=== PATIENT | male | born 1950 | race Hispanic/Latino ===

== ENCOUNTER 2023-02-10 21:05 | Emergency (ER) | payer OTHER ==
[~2023-02-10] VITALS: Ht 162.6 cm; Wt 82.6 kg
[2023-02-10 21:09] VITALS: BP 106/82
[2023-02-11] MEDS ORDERED: D-ME118S47 PO (00:04)
== END 2023-02-11 01:13 | disposition home or self-care (01) ==
LOC: EDH 21:05 → EEVIPCON 21:05 → EDH 02-11 01:13
DX: R05.9 Cough, unspecified (principal)
CPT/HCPCS: 71045

== ENCOUNTER 2025-07-02 11:31 | Emergency (ER) | payer MEDICARE, MEDICAID ==
[~2025-07-02] VITALS: Ht 162.6 cm; Wt 86.2 kg
[~2025-07-02 11:31] MED LIST: AEC81 PO; ATOR40TA69 PO; CLOP-31 PO; CYAN100092 PO; DILT120C89 PO; FERR-63 PO; TAMS-55 PO
--- NOTE | 2025-07-02 11:43 | ERN ---
General Chief Complaint: Congestion Stated Complaint: CONGESTION Time Seen by MD: 11:34 Source: patient History of Present Illness Initial Comments Patient is a 75-year-old male coming in complaining of a cough for 10 years. Per patient he does not admit to smoking crack not every day but sometimes. He believes that this is enhancing his cough production in his here for further evaluation. Allergies: Coded Allergies: No Known Allergies (Unverified Allergy, Unknown, 02/10/23) Home Meds Active Scripts Cyanocobalamin (Vitamin B-12) (Vitamin B-12) 1,000 Mcg/1 Ml Drops, 1000 MCG PO DAILY for 30 Days, #30 DAYS 1 Refill Prov:PALLAVI VALENTINE Jr., MD 06/02/23 Ferrous Sulfate (Feosol) 325 Mg Tablet, 325 MG PO QODAY for Anemia for 90 Days, #90 TAB Prov:PALLAVI VALENTINE Jr., MD 06/02/23 Tamsulosin HCl (Flomax) 0.4 Mg Cap.er.24h, 0.4 MG PO HS for 30 Days, #30 CAPSULE.DR 3 Refills Prov:PALLAVI VALENTINE Jr., MD 06/02/23 Diltiazem HCl (Cardizem Cd 120 mg) 120 Mg Cap.er.24h, 120 MG PO DAILY for 30 Days, #30 CAPSULE.DR 2 Refills Prov:PALLAVI VALENTINE Jr., MD 06/02/23 Clopidogrel Bisulfate (Plavix) 75 Mg Tablet, 75 MG PO DAILY for 30 Days, #30 TAB Prov:PALLAVI VALENTINE Jr., MD 06/02/23 Atorvastatin Calcium (LIPITOR) 40 Mg Tablet, 40 MG PO HS for 90 Days, #90 TAB 2 Refills Prov:PALLAVI VALENTINE Jr., MD 06/02/23 Aspirin (ASPIRIN 81 MG ECTAB) 81 Mg Ectab, 81 MG PO DAILY for 90 Days, #90 TAB.EC 2 Refills Prov:PALLAVI VALENTINE Jr., MD 06/02/23 Past Medical History Past Medical History: Other Medical History Other: hepatitis Past Surgical History: None Surgical History Other: denies past sx hx ROS Dictation CONSTITUTIONAL: No chills, no fever, no weakness, no diaphoresis, no malaise. HEAD/FACE: No signs of trauma. EENT: No eye pain, no blurred vision, no tearing, no double vision, no ear pain, no ear discharge, no nose pain, no nasal congestion, no throat pain, no throat swelling, no mouth pain. RESPIRATORY: No cough, no orthopnea, no SOB, no stridor, no wheezing. CARDIOVASCULAR: No chest pain, no edema, no palpitations, no syncope. GASTROINTESTINAL/ABDOMINAL: No abdominal pain, no constipation, no diarrhea, no nausea, no vomiting. GENITOURINARY: No abnormal discharge, no dysuria, no frequent urination, no hematuria. No complaints of pain in the genitals. MUSCULOSKELETAL: No back pain, no gout, no joint pain, no joint swelling, no muscle pain, no muscle stiffness, no neck pain. INTEGUMENTARY: No change in color, no change in hair/nails, no dryness, no lesion, no lumps, no rash. NEUROLOGICAL/PSYCH: No anxiety, not depressed, no emotional problem, no headache, no numbness, no pre-existing deficit, no history of seizures, no tremors, no weakness. HEMATOLOGIC/LYMPHATIC: Not anemic, no history of blood clots, no apparent bleeding, no bruising, glands not swollen. All Systems Negative, Except as Noted. Physical Exam Physical Exam Dictation VITAL SIGNS: Reviewed. GENERAL APPEARANCE: Alert, oriented x3, no acute distress, obese. HEAD AND FACE: Non-traumatic. EYES: PERRL, pink conjunctivas, eyelid no trauma, anterior chamber clear. EARS: Pinnas intact and no signs of trauma or erythema. Ear canals clear and no discharge. TMs no erythema. NOSE: No discharge, no bleeding. OROPHARYNX: Mouth normal, teeth no caries, tongue pink. Pharynx clear, no erythema. Tonsils no exudates, no abscesses noted. Mucous membrane moist. NECK: Supple, non-tender, no thyromegaly, no masses, no JVD, no bruits. BREAST: Deferred. CHEST: No tenderness, no crepitus, no paradoxical movement, no retractions. LUNGS: Clear, well-ventilated, symmetric, no rales, no wheezing, no rhonchi, no stridor, good breath sounds bilaterally. HEART: Regular rate, regular rhythm, no murmur, no gallops. VASCULAR: No peripheral edema. ABDOMEN: Soft, positive bowel sounds, nondistended, no guarding, nontender, no rebound, no masses no hepatomegaly, no splenomegaly, no Zeng's sign, no hernias. RECTAL: Deferred. GENITAL: Deferred. NEUROLOGICAL: Normal speech, gross motor function intact, gross sensory function intact. MUSCULOSKELETAL: Neck nontender, full range of motion, back nontender, full range of motion. EXTREMITIES: Nontender, full range of motion. SKIN: Color pink, dry, no turgor, no rash, no lacerations, no abrasions, no contusions. LYMPHATICS: Deferred. Results Laboratory and Microbiology Lab and Micro Result Laboratory Tests Test 07/02/25 12:04 White Blood Count 10.8 K/uL (4.8-10.8) Red Blood Count 3.79 MIL/uL (4.50-6.20) L Hemoglobin 11.6 g/dL (14.0-18.0) L Hematocrit 37.6 % (42-54) L Mean Corpuscular Volume 99.2 fL (79-99) H Mean Corpuscular Hemoglobin 30.6 pg (27.0-33.0) Mean Corpuscular Hemoglobin Concent 30.9 g/dL (32.0-36.0) L Red Cell Distribution Width 13.7 % (11.0-15.5) Platelet Count 444 K/uL (130-400) H Mean Platelet Volume 9.5 fL (7.5-10.5) Immature Granulocyte % (Auto) 0.6 % (0-1) Neutrophils (%) (Auto) 71.6 % (40.0-77.0) Lymphocytes (%) (Auto) 18.9 % (21.0-51.0) L Monocytes (%) (Auto) 6.9 % (3.0-13.0) Eosinophils (%) (Auto) 1.4 % (0.0-8.0) Basophils (%) (Auto) 0.6 % (0.0-5.0) Neutrophils # (Auto) 7.8 K/uL (1.8-7.7) H Lymphocytes # (Auto) 2.0 K/uL (1.0-4.8) Monocytes # (Auto) 0.8 K/uL (0.1-1.0) Eosinophils # (Auto) 0.15 K/uL (0.00-0.70) Basophils # (Auto) 0.06 K/uL (0.00-0.20) Absolute Immature Granulocyte (auto 0.07 K/uL (0-1) Nucleated Red Blood Cells 0.0 % (0.0-0.19) Sodium Level 141 mmol/L (136-145) Potassium Level 5.2 mmol/L (3.5-5.1) H Chloride Level 107 mmol/L (101-111) Carbon Dioxide Level 24 mmol/L (21-32) Blood Urea Nitrogen 33 mg/dL (7-18) H Creatinine 1.8 mg/dL (0.5-1.3) H Glomerular Filtration Rate Calc 39 mL/min (>90) Random Glucose 96 mg/dL (70-105) Total Calcium 9.0 mg/dL (8.5-10.1) Troponin I High Sensitivity 9 ng/L (4-75) B-Type Natriuretic Peptide 593 pg/mL (0-100) H Labs Reviewed?: Yes EKG/XRAY/US/CT/[place] [address] IMAGING REPORT Signed PATIENT: PALLAVI CABRERA MR#: [id number] : 1950 SEX: M AGE: 75 LOCATION: [facility] ORDER 114 STATUS: [facility] REPORT#: [id number] SERVICE [id number] REASON: cough ORDERING PHYSICIAN: MAOS SILVA MD PROCEDURE: CXR1VW - CHEST 1VW EXAM: CR Chest, 1 View. CLINICAL HISTORY: cough COMPARISON: None provided. FINDINGS: Diffuse airspace disease bilaterally is presumed to reflect an infectious and/or inflammatory process. This is more pronounced at the lung bases. There is no pleural effusion or pneumothorax. Heart size and pulmonary vessels are within normal limits. IMPRESSION: 1. Bilateral airspace disease, more pronounced at the lung bases, consistent with infectious or inflammatory process. /[place] DICTATED BY: GIGI WHEELER Jr., MD DATE: 07/02/25 1350 ELECTRONICALLY SIGNED BY: GIGI WHEELER Jr., MD DATE: 07/02/25 1350 MDM MDM: Differential diagnosis:, URI, history of smoking crack Rationale: Tests considered and ordered secondary to shared decision making include: Previous outside records reviewed: Old ER visits. Risk of complication and/or morbidity or mortality of patient management: None Medications-Per medication reconciliation Need for hospitalization: Patient does not meet criteria for hospitalization. Need for emergency major/minor surgery: No Patient is a 72-year-old male coming in per patient he has had this cough for 10 years. Laboratory workup negative for acute findings chest x-ray did disclose inflammation versus infectious process. Patient will be discharged with breathing treatments and antibiotics. It did advised him appropriate follow up with the PCP for long-term management. Also advised him to abstain from smoking crack as this was cause permanent lung damage. He agrees and will follow up accordingly. ED Course Orders Procedure Category Date Status Time Cbc With Differential LAB 07/02/25 In Process 11:41 Chest 1vw RAD 07/02/25 Resulted 11:41 12 Lead Ekg Tracing- EKG 07/02/25 Complete Technical 11:41 Troponin I High LAB 07/02/25 Complete Sensitivity 11:41 Basic Metabolic Panel LAB 07/02/25 Complete 11:41 B-Type Natriuretic LAB 07/02/25 In Process Peptide 11:41 Vital Signs Date Time Temp Pulse Resp B/P (MAP) Pulse Ox O2 Delivery O2 Flow Rate FiO2 07/02/25 11:38 98.8 61 20 134/96 96 Room Air* 0 21 07/02/25 11:36 98.8 61 20 134/96 96 Room Air 0 DX & DISP Disposition: Discharge Departure Impression: Primary Impression: URI (upper respiratory infection) Additional Impression: Crack cocaine use Condition: Stable Scripts Prednisone (Prednisone) 5 Mg Tablet 1 TAB PO DAILY for 7 Days, #7 TAB 0 Refills Prov: AMOS SILVA MD 07/02/25 Amoxicillin/Potassium Clav (Amox Tr-K Clv 875-125 mg Tab) 875 Mg-125 Mg Tablet 1 TAB PO BID for 10 Days, #20 TAB 0 Refills Prov: AMOS SILVA MD 07/02/25 Albuterol Sulfate (Ventolin Hfa) 90 Mcg Hfa.aer.ad 2 PUFF IH Q4HPRN PRN for wheezing for 30 Days, #18 GM 0 Refills Prov: AMOS SILVA MD 07/02/25 Additional Instructions: FOLLOW-UP WITH PRIMARY CARE PROVIDER IN 1 TO 2 DAYS. TAKE MEDICATIONS DIREC GUEVARA HERE IN THE EMERGENCY ROOM. OKAY TO CONTINUE HOME MEDICATIONS UNLESS OTHERWISE DISCUSSED DURING YOUR VISIT IN THE EMERGENCY ROOM TODAY. RETURN TO YOUR NEAREST EMERGENCY ROOM IF SYMPTOMS WORSEN OR IF THERE IS NO IMPROVEMENT. CALL 911 IF YOU NEED IMMEDIATE ASSISTANCE. TAKE TYLENOL [id number] NEEDED AND IF NO CONTRAINDICATIONS ARE PRESENT. INCREASE ORAL HYDRATION. A WOUND CULTURE OR URINE CULTURE WAS ORDERED HERE IN THE EMERGENCY ROOM DEPARTMENT PLEASE FOLLOW-UP WITH PRIMARY CARE PROVIDER AND ADVISE THEM TO GET REPORTS FROM OUR FACILITY. IF YOU HAD ANY SHERWIN WRAP/SPLINTS THAT WERE APPLIED HERE, PLEASE DO NOT REMOVE THEM UNTIL YOU SEE YOUR PRIMARY CARE OR SPECIALTY. Referrals: Referrals: SELF,REFERRAL (PCP) ALLYSSA HAZEL MD Time of Disposition: 13:02 AMOS SILVA MD Jul 02, 2025 11:43
--- NOTE | 2025-07-02 11:54 | EKG ---
[facility] Test Date: 2025-07-02 Test Time: 11:41:52 Pat Name: PALLAVI CABRERA Department: ED Room: Gender: M Store Keeper: [facility] : 1950 Requested By: AMOS SILVA Order Number: [id number] Reading MD: Melanie Lebron Measurements Intervals [place] Rate: 109 P: 48 AL: 141 QRS: 6 QRSD: 89 T: 57 QT: 322 QTc: 434 Interpretive Statements Sinus tachycardia Atrial premature complexes Probable left atrial enlargement Compared to ECG 05/30/2023 17:50:14 Atrial premature complex(es) now present Atrial fibrillation no longer present Electronically Signed On 07-03-2025 10:25:13 CDT by Melanie Lebron Please click the below link to view image of tracing.
[2025-07-02 12:15] LABS: IMMATURE GRANULOCYTE ABSOLUTE 0.07 K/uL (0-1); NUCLEATED RED BLOOD CELLS 0.0 % (0.0-0.19); PLATELET COUNT (AUTO) 444 K/uL (130-400); RED BLOOD CELL COUNT(AUTO) 3.79 MIL/uL (4.50-6.20); RED CELL DISTRIBUTION WIDTH 13.7 % (11.0-15.5); WHITE BLOOD COUNT (AUTO) 10.8 K/uL (4.8-10.8)
[2025-07-02 12:25] LABS: CREATININE 1.8 mg/dL (0.5-1.3); GLOMERULAR FILTR. RATE CALC 39.0 mL/min (>90); GLUCOSE,RANDOM 96.0 mg/dL (70-105); SODIUM SERUM 141.0 mmol/L (136-145); UREA NITROGEN, BLOOD 33.0 mg/dL (7-18)
--- NOTE | 2025-07-02 12:51 | HMCIMG ---
EXAM: CR Chest, 1 View. CLINICAL HISTORY: cough COMPARISON: None provided. FINDINGS: Diffuse airspace disease bilaterally is presumed to reflect an infectious and/or inflammatory process. This is more pronounced at the lung bases. There is no pleural effusion or pneumothorax. Heart size and pulmonary vessels are within normal limits. IMPRESSION: 1. Bilateral airspace disease, more pronounced at the lung bases, consistent with infectious or inflammatory process. /[place]
[2025-07-02] MEDS ORDERED: ALBU18HF7 IH (13:03)
[2025-07-02] MEDS ORDERED: AMOX1TAB16 PO (13:03)
[2025-07-02] MEDS ORDERED: PRED5TAB PO (13:03)
[2025-07-02 14:25] VITALS: BP 140/67; PULSE 89; RESP 18; TEMP 98.6; O2SAT 99
== END 2025-07-02 14:28 | disposition home or self-care (01) ==
LOC: EDH 11:31
DX: J06.9 Acute upper respiratory infection, unspecified (principal); F14.90 Cocaine use, unspecified, uncomplicated; Z79.02 Long term (current) use of antithrombotics/antiplatelets; Z79.82 Long term (current) use of aspirin; Z79.899 Other long term (current) drug therapy
CPT/HCPCS: 36415; 71045; 80048; 83880; 84484; 85025; 93005; 99285